=== PATIENT | female | born 1935 | race Caucasian/White ===

== ENCOUNTER 2022-07-22 14:24 | Inpatient (IN) ==
--- NOTE | 2022-07-22 14:35 | Emergency Department Note ---
Impression & Plan Symptomatic anemia, Iron deficiency anemia, Dizziness, Generalized weakness (Ruled Out): HLD (hyperlipidemia) ED Provider Note NAME: KAMERON TY AGE: 86 SEX: F ARRIVES VIA: Ambulance INFORMANT: Patient ED PROVIDER(S): Jason Luong MD CHIEF COMPLAINT: Weakness, anemia, referred. PLAN: Disposition: Admit MEDICAL DECISION MAKING: The patient is a pleasant 86-year-old woman who presents to the emergency department via EMS referred by [facility] for evaluation of generalized weakness and outpatient blood work that demonstrated hemoglobin of 7.5. Patient reports feeling weak for the past 3 months. She finds it difficu lt to pinpoint when she got weaker. It was noted by counts include [facility] beds at the [facility] that she was orthostatic. She is on a daily aspirin but no anticoagulation. She denies any bloody or black stools. She feels she is eating okay. She denies any fevers, cough, congestion, vomiting, diarrhea or urinary symptoms. On arrival, the patient is fatigued appearing no distress, afebrile stable vital signs. She has no focal neurologic deficits. She has moderate pallor. EKG without overt acute ischemia. CXR negative for acute cardiopulmonary process. WBC 8.4K, nonspecific. H/H 7.0/24 downtrending. Platelets within normal limits. Chemistry without metabolic acidosis. Electrolytes and LFTs without significant abnormality. Iron continues to be low at 21. LFTs unremarkable. High-sensitivity troponin 12.5, within normal limits. TSH within normal limits. UA without convincing evidence of infection. COVID-19 RNA, LEIGHANN test was negative. Given the patient's symptomatic anemia with downtrending H/H she was consented for blood transfusion and 2 units of PRBCs ordered. Patient agrees with plan for admission for further management. Case was discussed with Reina Ford, [facility] PAC, with Dr. Marrero [facility] hospitalist who will evaluate the patient for admission. Triage Nursing notes reviewed and agree them. Prior medical records reviewed Vital Signs: reviewed and remarkable for no significant abnormalities Differential diagnosis: Infection, dehydration, metabolic abnormality, hypo/hyperglycemia, electrolyte disturbance, anemia, hypoxia, cardiac sources, intracerebral event, toxicologic, neurologic, as well as other pathologies. ER treatment provided: See below. Diagnostics interpreted by me: ECG: Normal sinus rhythm, 82 bpm, no ectopy, no overt ST elevation or depression, QTC 436, QRS 98. Cardiac Monitoring: An order for continuous cardiac monitoring was placed and demonstrated Normal sinus rhythm, 82 bpm, no ectopy. Laboratory studies: See below Imaging studies: See below Consultation(s): Reina Ford, [facility] PAC, [facility]. HPI: The patient is a pleasant 86-year-old woman who presents to the emergency department via EMS referred by [facility] for evaluation of generalized weakness and outpatient blood work that demonstrated hemoglobin of 7.5. Patient reports feeling weak for the past 3 months. She finds it difficult to pinpoint when she got weaker. It was noted by counts include [facility] beds at the [facility] that she was orthostatic. She is on a daily aspirin but no anticoagulation. She denies any bloody or black stools. She feels she is eating okay. She denies any fevers, cough, congestion, vomiting, diarrhea or urinary symptoms. ROS: See above HPI for pertinent positives & negatives. A total of 10 systems reviewed and were otherwise negative. VITALS:See Below PHYSICAL EXAMINATION: GENERAL: Awake, alert, fatigued-appearing, in no distress HENT: Normocephalic, atraumatic. Oropharynx with dry mucous membranes and otherwise unremarkable. EYES: Normal conjunctiva. Sclera non-icteric. NECK: Supple. No nuchal rigidity. FROM. No JVD. RESPIRATORY: Clear to auscultation. CARDIAC: Regular rate, normal rhythm. Extremities warm and well perfused. Pulses equal. ABDOMEN: Soft, non-distended. No tenderness to palpation. No rebound or guarding. No masses. RECTAL: Deferred. MUSCULOSKELETAL: Chest examination reveals no tenderness. The back is symmetrical on inspection without obvious abnormality. There is no CVA tenderness to palpation. No joint edema. LOWER EXTREMITIES: Calves are equal size bilaterally and non-tender. No edema. No discoloration. NEURO: Normal sensorium. No sensory or motor deficits noted. 5/5 strength and SILT x 4 extremities. Intact finger to nose. SKIN: Moderate pallor. No rash or jaundice noted. ED COURSE: Critical Care: I have personally spent greater than 45 minutes of critical care time in the direct management of this patient. This includes bedside care, interpretation of diagnostic studies, and testing, discussion with consultants, patient, and family members, and other required patient management activities. This 45 minutes is in excess of all separately billable procedures. Jason Luong MD Past Med/Surg History Medical History Abdominal pain CKD stage 3 due to type 2 diabetes mellitus Diabetes type 2, controlled Goals of care, counseling/discussion H/O: lung cancer HLD (hyperlipidemia) HTN (hypertension) Iron deficiency anemia Paroxysmal atrial fibrillation Weakness Family History Other Family history non-contributory Social History Smoking Status: Never smoker Tobacco Type: Cigarettes Second Hand Exposure: No; Hx Alcohol Use: No Hx Substance Use: No Preferred Language: Israeli Communication Ability: Effective Call Centre Supervisor Required: No Beliefs That Will Affect Care: None Current Living Situation: Alone Other Information That Helps Us Care for You: No Feels Safe at Home: Yes Safety Concerns: Feels Safe At This Time Assistive Devices: Cane, Denture - Upper and Glasses Allergies Allergies Allergy/AdvReac Type Severity Reaction Status Date / Time No Known Drug Allergies Allergy Unknown Verified 07/22/22 17:05 Home Meds Home Medications Medication Instructions Recorded Confirmed aspirin 81 mg tablet,delayed 81 mg PO DAILY 07/22/22 07/22/22 release atorvastatin 20 mg tablet 20 mg PO DAILY 07/22/22 07/22/22 diclofenac sodium 1 % topical gel 1 ea topical QID PRN Pain 07/22/22 07/22/22 furosemide 40 mg tablet 40 mg PO QAM 07/22/22 07/22/22 hydrochlorothiazide 25 mg tablet 12.5 mg PO DAILY 07/22/22 07/22/22 insulin glargine 100 unit/mL 30 unit subcut QAM 07/22/22 07/22/22 subcutaneous solution (Lantus U-100 Insulin) lisinopril 2.5 mg tablet 2.5 mg PO DAILY 07/22/22 07/22/22 sertraline 50 mg tablet 50 mg PO QAM 07/22/22 07/22/22 tramadol 50 mg tablet 50 mg PO BID PRN Pain, Severe 07/22/22 07/22/22 triamcinolone acetonide 0.1 % 1 applic topical BID 07/22/22 07/22/22 topical cream Results & Data (ED) Vital Signs Vital Signs - 24 hr 07/22/22 14:24 07/22/22 14:24 07/22/22 14:24 Temperature 36.8 C 36.8 C Temperature Source Oral Oral Pulse Rate 87 Pulse Rate [Apical] 87 Pulse Rhythm Pulse Rhythm [Apical] Regular Pulse Strength [Apical] Normal Respiratory Rate 20 20 Respiratory Effort / Characteristics Non-Labored Spontaneous Non-Labored Spontaneous SOB on Exertion Respiratory Depth Normal Normal Respiratory Pattern Regular Regular Blood Pressure 145/68 H Blood Pressure [Right Arm] 145/68 H Blood Pressure Mean 93 Blood Pressure Mean [Right Arm] 93 Blood Pressure Position Sitting Blood Pressure Position [Right Arm] Lying Pulse Oximetry 98 98 98 Oxygen Delivery Method Room Air Room Air Room Air Sepsis Recent Fever Within 48 Hours No Sepsis New/Unexplained Change in Mental Status N/A Sepsis Action Taken by Nursing No Action Required 07/22/22 14:38 07/22/22 14:43 07/22/22 16:20 Temperature Temperature Source Pulse Rate 87 88 Pulse Rate [Apical] 76 Pulse Rhythm Regular Pulse Rhythm [Apical] Regular Pulse Strength [Apical] Normal Respiratory Rate 20 18 18 Respiratory Effort / Characteristics Non-Labored Respiratory Depth Normal Respiratory Pattern Regular Blood Pressure Blood Pressure [Right Arm] 120/60 Blood Pressure Mean Blood Pressure Mean [Right Arm] 80 Blood Pressure Position Blood Pressure Position [Right Arm] Lying Pulse Oximetry 98 96 97 Oxygen Delivery Method Room Air Room Air Room Air Sepsis Recent Fever Within 48 Hours Sepsis New/Unexplained Change in Mental Status Sepsis Action Taken by Nursing Laboratory Data Attestation: I reviewed the patient's lab results. Result diagrams: 07/22/22 14:38 07/22/22 14:38 Lab Results 07/22/22 07/22/22 07/22/22 Range/Units 14:38 14:38 14:38 WBC 8.48 (4.8-10.8) K/ul RBC 3.11 L (3.93-5.22) M/uL Hgb 7.0 L (12.0-16.0) g/dl Hct 24.0 L (34.1-44.9) % MCV 77.2 L (80.0-100.0) fL MCH 22.5 L (25.0-34.0) pg MCHC 29.2 L (32.0-36.0) g/dL RDW Std Deviation 45.5 (36.4-46.3) fL RDW Coeff of Ethan 16.2 H (11.5-14.5) % Plt Count 363 (130-400) K/uL MPV 10.0 (9.4-12.3) fL Immature Gran % (Auto) 0.4 % Neut % (Auto) 71.7 % Lymph % (Auto) 20.6 % [place] % (Auto) 5.5 % Eos % (Auto) 1.3 % Baso % (Auto) 0.5 % Reticulocyte % (Auto) (0.5-2.0) % Neut # (Auto) 6.08 (1.4-6.5) K/uL Lymph # (Auto) 1.75 (1.2-3.4) K/uL [place] # (Auto) 0.47 (0.24-0.82) K/uL Eos # (Auto) 0.11 (0-0.50) K/uL Baso # (Auto) 0.04 (0-0.2) K/uL Reticulocyte # (0.02-0.10) 10^6/uL Immature Gran # (Auto) 0.03 H (0.00-0.02) K/uL Polychromasia 1+ Microcytosis Present Ovalocytes 1+ Acanthocytes (Spur) 1+ Sodium 137 (136-145) mmol/L Potassium 4.2 (3.5-5.1) mmol/L Chloride 102 (98-107) mmol/L Carbon Dioxide 23 (21-32) mmol/L Anion Gap 12 H (3-11) BUN 26 H (6-23) mg/dl Creatinine 1.04 (0.6-1.2) mg/dl Est Cr Clr Drug Dosing 38.9 ml/min Est GFR ( Amer) 56.3 ml/min Est GFR (Non-Af Amer) 48.6 ml/min BUN/Creatinine Ratio 25.0 H (10-20) Glucose 188 H (70-99(Fasting)) mg/dl Calcium 9.1 (8.5-10.1) mg/dl Phosphorus 3.6 (2.5-4.9) mg/dl Magnesium 1.9 (1.7-2.4) mg/dl Iron 21 L (35-150) mcg/dl Transferrin 323 (200-360) mg/dl Ferritin 4.4 L (8-388) ng/ml Total Bilirubin 0.3 (0.2-1.0) mg/dl AST 15 (13-39) U/L ALT 12 (7-52) U/L Alkaline Phosphatase 50 (34-104) U/L Troponin I High Sens 12.5 (0-14) pg/ml Total Protein 6.3 (6.0-8.3) gm/dl Albumin 3.5 (3.4-5.0) gm/dl Globulin 2.8 (2.5-4.0) gm/dl Albumin/Globulin Ratio 1.3 (0.9-2) TSH 2.093 (0.300-4.500) uIu/ml SARS-CoV-2, RNA, NAAT (NEGATIVE) Blood Type Blood Type Recheck Antibody Screen Crossmatch 07/22/22 07/22/22 07/22/22 Range/Units 14:38 15:13 15:20 WBC (4.8-10.8) K/ul RBC (3.93-5.22) M/uL Hgb (12.0-16.0) g/dl Hct (34.1-44.9) % MCV (80.0-100.0) fL MCH (25.0-34.0) pg MCHC (32.0-36.0) g/dL RDW Std Deviation (36.4-46.3) fL RDW Coeff of Ethan (11.5-14.5) % Plt Count (130-400) K/uL MPV (9.4-12.3) fL Immature Gran % (Auto) % Neut % (Auto) % Lymph % (Auto) % [place] % (Auto) % Eos % (Auto) % Baso % (Auto) % Reticulocyte % (Auto) 1.5 (0.5-2.0) % Neut # (Auto) (1.4-6.5) K/uL Lymph # (Auto) (1.2-3.4) K/uL [place] # (Auto) (0.24-0.82) K/uL Eos # (Auto) (0-0.50) K/uL Baso # (Auto) (0-0.2) K/uL Reticulocyte # 0.05 (0.02-0.10) 10^6/uL Immature Gran # (Auto) (0.00-0.02) K/uL Polychromasia Microcytosis Ovalocytes Acanthocytes (Spur) Sodium (136-145) mmol/L Potassium (3.5-5.1) mmol/L Chloride (98-107) mmol/L Carbon Dioxide (21-32) mmol/L Anion Gap (3-11) BUN (6-23) mg/dl Creatinine (0.6-1.2) mg/dl Est Cr Clr Drug Dosing ml/min Est GFR ( Amer) ml/min Est GFR (Non-Af Amer) ml/min BUN/Creatinine Ratio (10-20) Glucose (70-99(Fasting)) mg/dl Calcium (8.5-10.1) mg/dl Phosphorus (2.5-4.9) mg/dl Magnesium (1.7-2.4) mg/dl Iron (35-150) mcg/dl Transferrin (200-360) mg/dl Ferritin (8-388) ng/ml Total Bilirubin (0.2-1.0) mg/dl AST (13-39) U/L ALT (7-52) U/L Alkaline Phosphatase (34-104) U/L Troponin I High Sens (0-14) pg/ml Total Protein (6.0-8.3) gm/dl Albumin (3.4-5.0) gm/dl Globulin (2.5-4.0) gm/dl Albumin/Globulin Ratio (0.9-2) TSH (0.300-4.500) uIu/ml SARS-CoV-2, RNA, NAAT NEGATIVE (NEGATIVE) Blood Type B Positive Blood Type Recheck Antibody Screen NEGATIVE Crossmatch See Detail 07/22/22 Range/Units 16:28 WBC (4.8-10.8) K/ul RBC (3.93-5.22) M/uL Hgb (12.0-16.0) g/dl Hct (34.1-44.9) % MCV (80.0-100.0) fL MCH (25.0-34.0) pg MCHC (32.0-36.0) g/dL RDW Std Deviation (36.4-46.3) fL RDW Coeff of Ethan (11.5-14.5) % Plt Count (130-400) K/uL MPV (9.4-12.3) fL Immature Gran % (Auto) % Neut % (Auto) % Lymph % (Auto) % [place] % (Auto) % Eos % (Auto) % Baso % (Auto) % Reticulocyte % (Auto) (0.5-2.0) % Neut # (Auto) (1.4-6.5) K/uL Lymph # (Auto) (1.2-3.4) K/uL [place] # (Auto) (0.24-0.82) K/uL Eos # (Auto) (0-0.50) K/uL Baso # (Auto) (0-0.2) K/uL Reticulocyte # (0.02-0.10) 10^6/uL Immature Gran # (Auto) (0.00-0.02) K/uL Polychromasia Microcytosis Ovalocytes Acanthocytes (Spur) Sodium (136-145) mmol/L Potassium (3.5-5.1) mmol/L Chloride (98-107) mmol/L Carbon Dioxide (21-32) mmol/L Anion Gap (3-11) BUN (6-23) mg/dl Creatinine (0.6-1.2) mg/dl Est Cr Clr Drug Dosing ml/min Est GFR ( Amer) ml/min Est GFR (Non-Af Amer) ml/min BUN/Creatinine Ratio (10-20) Glucose (70-99(Fasting)) mg/dl Calcium (8.5-10.1) mg/dl Phosphorus (2.5-4.9) mg/dl Magnesium (1.7-2.4) mg/dl Iron (35-150) mcg/dl Transferrin (200-360) mg/dl Ferritin (8-388) ng/ml Total Bilirubin (0.2-1.0) mg/dl AST (13-39) U/L ALT (7-52) U/L Alkaline Phosphatase (34-104) U/L Troponin I High Sens (0-14) pg/ml Total Protein (6.0-8.3) gm/dl Albumin (3.4-5.0) gm/dl Globulin (2.5-4.0) gm/dl Albumin/Globulin Ratio (0.9-2) TSH (0.300-4.500) uIu/ml SARS-CoV-2, RNA, NAAT (NEGATIVE) Blood Type Blood Type Recheck B Positive Antibody Screen Crossmatch Administered Medications Pantoprazole Sodium 40 mg/ (Syringe) 10 mls @ 5 mls/min IV BID KAY Stop: 08/21/22 20:59 Last Admin: 07/22/22 21:57 Dose: 5 mls/min Documented By: ARR Insulin Aspart (Insulin Aspart Per Unit) 0 units SC ACHS KAY Stop: 08/21/22 20:59 Last Admin: 07/22/22 21:57 Dose: 1 units Documented By: ARR Co-signed By: SONIYA Insulin Glargine (Lantus Per Unit Charge) 0 units SQ BID KAY; Protocol Stop: 08/21/22 20:59 Last Admin: 07/22/22 21:57 Dose: 15 units Documented By: ARR Co-signed By: SONIYA Triamcinolone Acetonide (Triamcinolone Acet 0.1% Cr 15 Gm Tube) 1 appln TOP BID KAY Stop: 08/21/22 20:59 Last Admin: 07/22/22 21:59 Dose: 1 appln Documented By: ARR Discontinued Medications Furosemide (Furosemide Inj 20 Mg/2 Ml Vial) 20 mg IV ONE ONE Stop: 07/22/22 17:46 Last Admin: 07/22/22 17:47 Dose: 20 mg Documented By: Sodium Chloride (Nss) 500 mls @ 250 mls/hr IV .Q2H KAY Stop: 07/22/22 16:44 Last Infusion: 07/22/22 17:15 Dose: 0 mls/hr Documented By: Admin: 07/22/22 15:15 Dose: 250 mls/hr Documented By: SR Magnesium Sulfate/Dextrose (Magnesium Sulfate / D5w) 1 gm in 100 mls @ 50 mls/hr IV ONE ONE Stop: 07/22/22 19:44 Last Infusion: 07/22/22 20:08 Dose: 0 mls/hr Documented By: Admin: 07/22/22 17:48 Dose: 50 mls/hr Documented By: Ioversol (Optiray 300 100ml) 94 ml IV ONCE ONE Stop: 07/22/22 17:30 Last Admin: 07/22/22 17:31 Dose: 94 ml Documented By: GRACIE Miscellaneous Information (Patient's Allergy Info Needs Entered) 1 each N/A Q30M [facility] Stop: 08/21/22 16:59 Last Admin: 07/22/22 20:09 Dose: Not Given Documented By: Admin: 07/22/22 17:06 Dose: 1 each Documented By: SR Pneumococcal Polyvalent Vaccine (Pneumococcal Polysaccharides 25 Mcg/0.5 Ml Vial/Syr) 25 mcg IM .ONCE ONE Stop: 07/22/22 19:45 Last Admin: 07/22/22 22:00 Dose: 25 mcg Documented By: ARR Imaging Data Radiologist's Impression: Chest X-Ray 07/22/22 14:41 XR chest 1V portable CLINICAL HISTORY: weakness TECHNIQUE: Single frontal radiograph of the chest was obtained. Comparison: None available at the time of this dictation. FINDINGS: No lines and tubes are seen. Calcified aortic knob is seen. The lungs are clear apart from atelectasis in the left lower lung. No evidence of pleural effusion or pneumothorax. IMPRESSION: No acute chest disease. ACT 112: Negative or not required by law. Electronically signed by: Jermaine Caicedo M.D. 07/22/2022 3:30 PM Discharge Plan Visit Data Chief Complaint: Weakness ED Provider: Jason Luong Discharge Problem: Symptomatic anemia, Iron deficiency anemia, Dizziness, Generalized weakness Discharge Problem: (Ruled Out): HLD (hyperlipidemia) Patient Disposition: Admitted As Inpatient Discharge Instructions Interventions: ED Discharge Assessment Last Done: 07/22/22 18:30
[2022-07-22] MEDS ORDERED: SODIUM CHLORIDE 0.9% 500 ML IV SCH (14:45)
[2022-07-22 15:04] LABS: Basophils # (auto) 0.04 K/uL (0-0.2); Basophils % (auto) 0.5 %; Eosinophils # (auto) 0.11 K/uL (0-0.50); Eosinophils % (auto) 1.3 %; Immature Granulocytes # (auto) 0.03 K/uL (0.00-0.02); Immature Granulocytes % (auto) 0.4 %; Lymphocytes # (auto) 1.75 K/uL (1.2-3.4); Lymphocytes % (auto) 20.6 %; Mean Corpuscular Hemoglobin 22.5 pg (25.0-34.0); Mean Corpuscular Hgb Conc 29.2 g/dL (32.0-36.0); Mean Corpuscular Volume 77.2 fL (80.0-100.0); Monocytes # (auto) 0.47 K/uL (0.24-0.82); Monocytes % (auto) 5.5 %; Neutrophils # (auto) 6.08 K/uL (1.4-6.5); Neutrophils % (auto) 71.7 %; Platelet Count 363 K/uL (130-400); RDW Coefficient of Variation 16.2 % (11.5-14.5); RDW Standard Deviation 45.5 fL (36.4-46.3); Red Blood Count 3.11 M/uL (3.93-5.22); White Blood Count 8.48 K/ul (4.8-10.8)
[2022-07-22 15:20] LABS: Reticulocyte % 1.5 % (0.5-2.0); Reticulocytes # 0.05 10^6/uL (0.02-0.10)
[2022-07-22 15:22] LABS: Acanthocytes 1+; Microcytosis Present; Ovalocytes 1+; Polychromasia 1+
--- NOTE | 2022-07-22 15:31 | XRay Report ---
XR chest 1V portable CLINICAL HISTORY: weakness TECHNIQUE: Single frontal radiograph of the chest was obtained. Comparison: None available at the time of this dictation. FINDINGS: No lines and tubes are seen. Calcified aortic knob is seen. The lungs are clear apart from atelectasi s in the left lower lung. No evidence of pleural effusion or pneumothorax. IMPRESSION: No acute chest disease. ACT 112: Negative or not required by law. Electronically signed by: Jermaine Caicedo M.D. 07/22/2022 3:30 PM
[2022-07-22 15:32] LABS: Albumin Globulin Ratio 1.3 (0.9-2); Albumin Level 3.5 gm/dl (3.4-5.0); Bilirubin,Total 0.3 mg/dl (0.2-1.0); Calcium 9.1 mg/dl (8.5-10.1); Creatinine Clr Calc Pharmacy 38.9 ml/min; Est GFR (African American) 56.3 ml/min; Est GFR (Non-African American) 48.6 ml/min; Globulin 2.8 gm/dl (2.5-4.0); Magnesium 1.9 mg/dl (1.7-2.4); Phosphorus 3.6 mg/dl (2.5-4.9); Potassium 4.2 mmol/L (3.5-5.1); Total Protein 6.3 gm/dl (6.0-8.3); Troponin I High Sensitivity 12.5 pg/ml (0-14)
[2022-07-22 15:46] LABS: Ferritin 4.4 ng/ml (8-388)
[2022-07-22] MEDS ORDERED: SODIUM CHLORIDE 0.9% 250 ML IV PRN (16:11)
--- NOTE | 2022-07-22 16:23 | History & Physical Report ---
Date of Service July 22, 2022 Assessment & Plan (1) Abdominal pain: (2) Weakness: (3) Iron deficiency anemia: (4) Paroxysmal atrial fibrillation: (5) Diabetes type 2, controlled: (6) CKD stage 3 due to type 2 diabetes mellitus: (7) H/O: lung cancer: (8) HTN (hypertension): (9) HLD (hyperlipidemia): Plan 86 y/o presents with weakness x 3 weeks and low Hgb; 7.0. Patient was to start Fe+ treatments today. Patient with some dizziness with ambulation. LLQ tenderness on exam; abd/pelvic CT ordered; pt will receive 1 UPRBC. Hold ASA; start Protonix. Patient with PMH that includes breast ca in 2010 s/p lumpectomy but no chemo/radiation and ovarian ca s/p complete hysterectomy 1989. Pt also DM2, CKD3, pAF. Fe+ Deficiency Anemia Abdominal Pain Weakness: Was due to start taking PO Iron, was just picked up at Pharmacy Increasing weakness with ambulating Hgb 7.0 in ED; T/C completed; Blood consent obtained; 1UPRBC infusing Lasix 20 mg s/p 1UPRBC FOBC ordered GI Consult placed; colonoscopy recc as OPT if stable. Pt stated she is not interested in a colonscopy and has never had one. LLQ on palpation; abd/pelvic CT ordered Ascorbic acid/Ferrous Sulfate ordered DM2: AC/HS blood sugars; no meal time coverage Lantus 34 units Q AM; Glycemic Pharmacy consulted for AM to manage after tonight Not taking any oral agents For BSG < 110, give 0 units Lantus For BSG 110-180 give 10 units Lantus For BSG > 180 give 15 units Lantus NPO after MN until GI sees patient; will provide diet tonight. H/O Lung and ovarian cancer: breast ca in 2010 s/p lumpectomy but no chemo/radiation ovarian ca s/p complete hysterectomy 1989 Moderate Aortic Stenosis HTN pAF: Takes a baby ASA; hold for now until H/H stable Noted on ECHO 03/2022: EF 60-64% Takes Lisinopril and HCTZ; hold HCTZ takes baby ASA; hold until bleeding/hgb stable HLD: takes atorvastatin; continue check lipid panel in AM Degenerative Disc Disease: takes Tramadol; continue Reports having compression fractures; no back surgeries noted Disposition: PCP: Dr. Fuentes Code: Full code Contact: [place] [phone]; called and left VM to provide update VTE Prophylaxis: TEDS/SCDS I personally was able to review all current laboratory work and diagnostic images obtained in the ED. Additionally, I was able to review the patients past medication reconciliation and history with direct visualization in the patients chart. Patient seen in collaboration with Dr. Marrero. See his addendum and physical exam added to this note. History of Present Illness Chief Complaint: weakness and abnormal labs Primary Care Provider: Mariluz Rajput MD Patient stated that she was being seen by [facility] and was noted to have a low hemoglobin of 7.5. She stated that she has been feeling week over the past few weeks, and was feeling dizzy when she would walk a few steps. She currently denies BUCKNER, dizziness, CP, SOB, black and tarry stools. 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 Patient reports that she lives alone at home and her granddaughter has arranged meals on wheels. Patient was sitting upright in her hospital bed in no apparent distress. She was AAO x 3 and able to converse and hold a meaningful conversation. She had some LLQ tenderness on exam warranting an abdominal CT to be ordered. She will receive one unit of PRBC with Lasix thereafter and we will trend H/H. Patient will be admitted under Hospitalist service for further evaluation and management. Please see A/P for further details. Allergies Allergy/AdvReac Type Severity Reaction Status Date / Time No Known Drug Allergies Allergy Unknown Verified 07/22/22 17:05 Home Medications Medication Instructions Recorded Confirmed Type aspirin 81 mg tablet,delayed 81 mg PO DAILY 07/22/22 07/22/22 History release atorvastatin 20 mg tablet 20 mg PO DAILY 07/22/22 07/22/22 History diclofenac sodium 1 % topical gel 1 ea topical QID PRN Pain 07/22/22 07/22/22 History furosemide 40 mg tablet 40 mg PO QAM 07/22/22 07/22/22 History hydrochlorothiazide 25 mg tablet 12.5 mg PO DAILY 07/22/22 07/22/22 History insulin glargine 100 unit/mL 30 unit subcut QAM 07/22/22 07/22/22 History subcutaneous solution (Lantus U-100 Insulin) lisinopril 2.5 mg tablet 2.5 mg PO DAILY 07/22/22 07/22/22 History sertraline 25 mg tablet 25 mg PO QAM 07/22/22 07/22/22 History sertraline 50 mg tablet 50 mg PO QAM 07/22/22 07/22/22 History tramadol 50 mg tablet 50 mg PO BID PRN Pain, Severe 07/22/22 07/22/22 History triamcinolone acetonide 0.1 % 1 applic topical BID 07/22/22 07/22/22 History topical cream Past Med/Surg History Medical History (Updated 07/22/22 @ 17:18 by ELOISE Coyle) Abdominal pain CKD stage 3 due to type 2 diabetes mellitus Diabetes type 2, controlled Goals of care, counseling/discussion H/O: lung cancer HLD (hyperlipidemia) HTN (hypertension) Iron deficiency anemia Paroxysmal atrial fibrillation Weakness Social History Smoking Status: Former smoker Tobacco Type: Cigarettes Preferred Language: Sinhala Feels Safe at Home: Yes Review of Systems Review of Systems: Neuro: (-) Falls, trauma, slurred speech HEENT: (-) BUCKNER, dizziness, dysphagia, visual or auditory changes CV: (-) CP, palpitations, swelling Resp: (-) SOB GI: (-) appetite changes, N/V/D, bowel changes : (-) urinary changes Skin: (-) rashes Psych: (-) anxiety, depression Physical Exam Physical Exam: Neuro: AAOx4, PERRLA, no aphagia, memory changes, CNII-XII grossly intact HEENT: head normocephalic, moist mucus membranes CV: S1/S2, (-) M/G/R, (+) 2 ower extremity edema, cap refill < 3 seconds Resp: Lungs CTA in all [place]. On RA GI: Abdomen S/NT/ND, Ax4 bowel sounds, (-) CVA tenderness Musculoskeletal: 5/5 B/L UE strength, 5/5 B/L LE strength. No gait disturbance Skin: (-) rashes , (-) erythema. Psych: euthymic mood Results & Data Results & Data ([facility] [place]) Vital Signs (Past 12 Hours) Vital Signs Temp Pulse Pulse Resp BP BP Pulse Ox 07/22/22 14:43 88 18 96 07/22/22 14:38 87 20 98 07/22/22 14:24 36.8 C 87 20 145/68 H 98 07/22/22 14:24 98 07/22/22 14:24 36.8 C 87 20 145/68 H 98 O2 Del Method 07/22/22 14:43 Room Air 07/22/22 14:38 Room Air 07/22/22 14:24 Room Air 07/22/22 14:24 Room Air 07/22/22 14:24 Room Air Laboratory Results Short CBC 07/22/22 Range/Units 14:38 WBC 8.48 (4.8-10.8) K/ul Hgb 7.0 L (12.0-16.0) g/dl Hct 24.0 L (34.1-44.9) % Plt Count 363 (130-400) K/uL BMP 07/22/22 14:38 Sodium 137 Potassium 4.2 Chloride 102 Carbon Dioxide 23 BUN 26 H Creatinine 1.04 Glucose 188 H Calcium 9.1 Liver Function 07/22/22 Range/Units 14:38 Total Bilirubin 0.3 (0.2-1.0) mg/dl AST 15 (13-39) U/L ALT 12 (7-52) U/L Alkaline Phosphatase 50 (34-104) U/L Albumin 3.5 (3.4-5.0) gm/dl Diagnostic Findings Chest X-Ray 07/22/22 14:41 XR chest 1V portable CLINICAL HISTORY: weakness TECHNIQUE: Single frontal radiograph of the chest was obtained. Comparison: None available at the time of this dictation. FINDINGS: No lines and tubes are seen. Calcified aortic knob is seen. The lungs are clear apart from atelectasis in the left lower lung. No evidence of pleural effusion or pneumothorax. IMPRESSION: No acute chest disease. ACT 112: Negative or not required by law. Electronically signed by: Jermaine Caicedo M.D. 07/22/2022 3:30 PM Code Status & VTE Plan Code Status Full Code in the event of Cardiac or respiratory arrest VTE Prophylaxis Plan VTE Prophylaxis will be ordered: Yes Supervising Physician Co-Signing Physician Notes Pt is a 86 y/o F with hx of Afib on aspirin, IDDM, moderate aortic valve stenosis, HTN, HLD, WILFREDO, CKD III, R lung ca s/p lobectomy admitted for symptomatic iron def anemia Hgb: 7.5 on 07/15/22 and 9.8 on 01/2022 PE: NAD, well developed HEENT: normal conjunctiva, EOMI Heart: Normal S1/S2, + systolic murmur Lungs: CTA, no crackles or wheezing Abd: soft, ND but mild TTP of the LLQ with possible palpable mass MSK: severe b/l pitting edema with small blisters Psych: AAOx3, normal affect A/P: Symptomatic iron def anemia: -pt denied any hx of GI bleed or hx of hemorrhoids -never had colonoscopy and not interested in colonoscopy -hgb has been decreasing slowly over a year -not suspecting UGIB but will do protonix IV q12hr -will obtain FOBT -hold aspirin at this time -CT abd to evaluate the abd -pt is okay with blood transfusion and sched to get 2 units of PRBC - repeat CBC at might night -for now will do oral Iron BID with vit c --- depending the hgb response will decide venofer -PT/OT Moderate with severe b/l pitting edema -will change the Lasix to 20mg IV -due to acute anemia with low normal BP will hold HCTZ for now -continue Lisinopril IDDM: -continue home lantus units and ISS Other chronic conditions: plan as above Agree with A/P by ELOISE Crooks
[2022-07-22] MEDS: Patient's ALLERGY Info needs ENTERED SCH ×2 (17:06→20:09)
[2022-07-22] MEDS ORDERED: OPTIRAY 300 100mL IV ONE (17:29)
[2022-07-22] MEDS ORDERED: MAGNESIUM SULFATE / D5W 1 GM/100 ML BAG IV ONE (17:45)
[2022-07-22] MEDS ORDERED: FUROSEMIDE INJ 20 MG/2 ML VIAL IV ONE (17:45)
--- NOTE | 2022-07-22 17:45 | CT Scan Report ---
CT SCAN OF THE ABDOMEN AND PELVIS WITH IV CONTRAST CLINICAL HISTORY: Left lower quadrant abdominal pain. COMPARISON STUDY: No priors. TECHNIQUE: Following the IV administration of 94 cc of Optiray 300, CT scan of the abdomen and pelvi s is performed from the lung bases to the proximal femora. Images are reviewed in the axial, sagittal , and coronal planes. IV contrast was administered without complication. A dose lowering technique wa s utilized adhering to the principles of ALARA. CT DOSE: 588.54 mGy.cm FINDINGS: Lung bases: The heart is enlarged and without pericardial effusion. The coronary arteries and mitral annulus are densely calcified. There is mild elevation of the left hemidiaphragm with bibasilar scarr ing/atelectasis. No airspace consolidation or pleural effusion is seen. A 3 mm left lower lobe pulmon daniela nodule is seen on image #36. A fat-containing Bochdalek hernia is noted on the right. Liver: The contrast-enhanced liver is normal in size, contour, and attenuation. There is no intrahepa tic biliary ductal dilatation. The hepatic veins and portal veins are patent. Gallbladder: There are tiny calcified gallstones without CT evidence of acute cholecystitis. Spleen: Normal in size and attenuation. Pancreas: Atrophic and grossly unremarkable. Adrenal glands: Unremarkable. Kidneys: The contrast enhanced kidneys demonstrate cortical atrophy and are without hydronephrosis. T he kidneys enhance symmetrically. Tiny renal sinus cysts are seen on the left. Abdominal vasculature: The abdominal aorta is normal in course and caliber noting moderate to advance d atherosclerotic calcification. Stomach and bowel: There is a moderate hiatal hernia. Postoperative change is seen involving the stom ach. There is [id number] sigmoid diverticulosis without CT evidence of acute diverticulitis. No bowel obstruction is identified. Mild fecal retention is seen throughout the colon. The appendix is normal as visualized. Peritoneum: There is no intraperitoneal free air or abdominal ascites. Lymphadenopathy: None. Pelvic viscera: The bladder is normal as visualized. The uterus is surgically absent. No adnexal lesi on is seen. Skeletal structures: The skeletal structures are osteopenic. There is moderate to advanced lumbosacra l spondylosis as well as mild scoliosis. No lytic or blastic lesions are seen. There are healed left- sided rib fractures. IMPRESSION: 1. No acute infectious or inflammatory findings are identified in the abdomen or pelvis. 2. Moderate hiatal hernia. 3. Cholelithiasis. 4. Cardiomegaly. 5. Sigmoid diverticulosis without CT evidence of acute diverticulitis. 6. Additional findings as above. ACT 112: Negative or not required by law. Electronically signed by: Sae Fonseca M.D. 07/22/2022 5:43 PM
[2022-07-22] MEDS ORDERED: PNEUMOCOCCAL POLYSACCHARIDES 25 MCG/0.5 ML VIAL/SYR IM ONE (19:44)
[2022-07-22] MEDS ORDERED: ASCORBIC ACID 500 MG TAB PO SCH (19:54)
[2022-07-22] MEDS ORDERED: DEXTROSE 50% 50 ML SYRINGE IV PRN (19:54)
[2022-07-22] MEDS ORDERED: ACETAMINOPHEN 325 MG TAB PO PRN (19:54)
[2022-07-22] MEDS ORDERED: GLUCOSE 10 TAB/TUBE PO PRN (19:54)
[2022-07-22] MEDS ORDERED: GLUCAGON FOR INJ 1 MG VIAL SQ PRN (19:54)
[2022-07-22] MEDS ORDERED: CARBOHYDRATES FOR HYPOGLYCEMIA PO PRN (19:54)
[2022-07-22] MEDS ORDERED: POLYETHYLENE (MIRALAX) 17 GM PACK PO PRN (19:54)
[2022-07-22] MEDS ORDERED: ALUMINUM/MAGNESIUM SUSP 30 ML UDC PO PRN (19:54)
[2022-07-22] MEDS ORDERED: GLUCOSE 40% GEL 15 GM TUBE PO PRN (19:54)
[2022-07-22] MEDS ORDERED: ONDANSETRON INJ 2 MG/ML 2 ML VIAL IV PRN (19:54)
[2022-07-22] MEDS ORDERED: MAGNESIUM HYDROXIDE SUSP 30 ML UDC PO PRN (19:54)
[2022-07-22] MEDS ORDERED: LANTUS PER UNIT CHARGE SQ SCH (21:00)
[2022-07-22] MEDS: PANTOprazole 40 MG in SYRINGE 0 ML IV SCH (21:57)
[2022-07-22] MEDS: INSULIN ASPART PER UNIT SC SCH (21:57)
[2022-07-22] MEDS: TRIAMCINOLONE ACET 0.1% CR 15 GM TUBE TOP SCH (21:59)
[2022-07-23 02:22] LABS: Appearance Urine Clear (Clear); Bacteria Urine Automated 4+ (Negative); Bilirubin Urine Negative (Negative); Blood Urine Negative (Negative); Cast Urine Automated 0 /lpf (0-5); Color Urine Yellow; Glucose Urine UA Negative (Negative); Ketones Urine Negative (Negative); Leukocyte Esterase Urine 1+ (Negative); Nitrite Urine Negative (Negative); Protein Urine Negative (Negative); RBC Urine Automated 0-4 /hpf (0-4); Specific Gravity Urine 1.021 (1.000-1.030); Urobilinogen Urine Negative (Negative); pH Urine 6.5 (4.5-7.5)
[2022-07-23 06:12] LABS: Hematocrit (blood only) 27.4 % (34.1-44.9); Hemoglobin 8.7 g/dl (12.0-16.0); Mean Corpuscular Hemoglobin 24.4 pg (25.0-34.0); Mean Corpuscular Hgb Conc 31.8 g/dL (32.0-36.0); Mean Corpuscular Volume 76.8 fL (80.0-100.0); Mean Platelet Volume 9.3 fL (9.4-12.3); Platelet Count 298 K/uL (130-400); RDW Coefficient of Variation 16.2 % (11.5-14.5); RDW Standard Deviation 45.5 fL (36.4-46.3); Red Blood Count 3.57 M/uL (3.93-5.22); White Blood Count 6.26 K/ul (4.8-10.8)
[2022-07-23 06:42] LABS: BUN Creatinine Ratio 22.6 (10-20); Calcium 8.7 mg/dl (8.5-10.1); Chol HDL Ratio 2.2 (0-5); Creatinine Clr Calc Pharmacy 47.3 ml/min; Est GFR (African American) 72.9 ml/min; Est GFR (Non-African American) 62.9 ml/min; Potassium 3.5 mmol/L (3.5-5.1)
[2022-07-23 06:51] LABS: Ferritin 5.1 ng/ml (8-388)
[2022-07-23] MEDS ORDERED: PHARMACY GLYCEMIC MGMT CONSULT PRN (08:00)
[2022-07-23 08:01] LABS: Estimated Average Glucose 169 mg/dl; Hemoglobin A1C 7.5 % (4.5-5.6)
--- NOTE | 2022-07-23 08:56 | Gastrointestinal Consultation ---
Date of Consultation July 23, 2022 Assessment & Plan (1) Symptomatic anemia: Most likely her anemia is mutifactorial including CKD. She is iron deficient suggestive of some GI blood loss. (2) Iron deficiency anemia: Plan The pt has symptomatic iron deficiency anemia w/o gross GI bleeding. I explained to her that a common cause of blood loss is from the GI tract including problems such as bleeding/ulcerations in hiatal hernias (which she is at risk for as she has a moderate sized hiatal hernia), esophagus/stomach/small intestines irritations or ulcerations or colon cancer. I explained that we typically recommend an upper endoscopy to see if any source of blood loss from the esophagus/stomach/beginning of the small intestines and if normal then recommend colonoscopy. The pt tells me that she has never undergone either of these tests and would like to avoid them if at all possible. She does not take any acid reducers and she is maintained on a low dose ASA. Recommend starting once daily PPI such as Pantoprazole 40mg daily - ongoing - lo ng term - to contact the risks of bleeding from hiatal hernia and ASA use. Supervising Physician Co-Signing Physician Notes I have personally seen and examined the patient with ELOISE New. Her note reflects my exam and findings. I agree with her impression and plan. Pt needs daily PPI indefinitely. Rudy Escamilla M.D. History of Present Illness Reason for Consultation: Anemia Requesting Physician: Reina Ford Attending Physician: Yousif Galarza MD History of Present Illness Ms. Danitza Romo is an 86 yr old female pt of Dr. Rajput w a hx of P A-fib, DM2, CKD3, HTN, moderate aortic valve stenosis, lung cancer(2000 surgery, no chemo or radiation), ovarian cancer (hysterectomy/w radiation she believes), breast cancer (lumpectomy, no chemo or radiation), who had dizziness and presented to the ED. On arrival, Hb 7. She received 2 units of RBCs and Hb this morning is 8 .7.BUN has been normal. She is awake, alert oriented,she tells me that she has not had any black or red BMs, no nausea, abdominal pain or heartburn. She does have a hiatal hernia and if eats a large meal quickly, she will have regurgitation. She tends towards constipation and takes Miralax about once every 3 days which affects a BM every 3-4 days. She hasn't had a change in bowel habits lately. Occult stool is pending. She has not passed a BM since yesterday morning before arrival here. Allergies Allergy/AdvReac Type Severity Reaction Status Date / Time No Known Drug Allergies Allergy Unknown Verified 07/22/22 17:05 Home Medications Medication Instructions Recorded Confirmed Type aspirin 81 mg tablet,delayed 81 mg PO DAILY 07/22/22 07/22/22 History release atorvastatin 20 mg tablet 20 mg PO DAILY 07/22/22 07/22/22 History diclofenac sodium 1 % topical gel 1 ea topical QID PRN Pain 07/22/22 07/22/22 History furosemide 40 mg tablet 40 mg PO QAM 07/22/22 07/22/22 History hydrochlorothiazide 25 mg tablet 12.5 mg PO DAILY 07/22/22 07/22/22 History insulin glargine 100 unit/mL 30 unit subcut QAM 07/22/22 07/22/22 History subcutaneous solution (Lantus U-100 Insulin) lisinopril 2.5 mg tablet 2.5 mg PO DAILY 07/22/22 07/22/22 History sertraline 50 mg tablet 50 mg PO QAM 07/22/22 07/22/22 History tramadol 50 mg tablet 50 mg PO BID PRN Pain, Severe 07/22/22 07/22/22 History triamcinolone acetonide 0.1 % 1 applic topical BID 07/22/22 07/22/22 History topical cream Patient History Medical History Abdominal pain CKD stage 3 due to type 2 diabetes mellitus Diabetes type 2, controlled Goals of care, counseling/discussion H/O: lung cancer HLD (hyperlipidemia) HTN (hypertension) Iron deficiency anemia Paroxysmal atrial fibrillation Weakness Family History Other Family history non-contributory Social History Smoking Status: Never smoker Tobacco Type: Cigarettes Second Hand Exposure: No; Hx Alcohol Use: No Hx Substance Use: No Preferred Language: Djiboutian Communication Ability: Effective Investment Advisor Required: No Beliefs That Will Affect Care: None Current Living Situation: Alone Other Information That Helps Us Care for You: No Feels Safe at Home: Yes Safety Concerns: Feels Safe At This Time Assistive Devices: Cane, Denture - Upper and Glasses Review of Systems Review of Systems: ROS: Gen: Denies weakness, fevers, weight loss Eyes: No eye redness, or pain, no recent vision changes Resp: No SOB, no cough Cardio: + chronic bilat ankle edema, not recently worsened; No palpitations/irregular beats, no chest pain GI: No abdominal pain, no nausea/vomiting, no blood in BMs : Denies pain on urination Skin: + chronic bilat itchy ankle rashes x a year; No jaundice, no itching or new rashes M/S: chronic joint pain from arthritis but no recent worsening Physical Exam Constitutional: WD/WN, vitals as above Eyes: PERRL, conjunctivae normal, anicteric sclerae ENMT: external ear and nose normal, oropharynx normal Neck: trachea midline, no thyromegaly Respiratory: normal respiratory effort, lungs clear to auscultation Cardiovascular: Heart Sounds: normal S1, normal S2 and + murmur (3/6 systolic murmur consistent with moderate Aortic Valve Stenosis) Extremities: + edema (trace right ankle edema, 1+ left ankle edema) Gastrointestinal (Abdomen): normal bowel sounds, soft, nontender, no hepatosplenomegaly Skin: dull red splotchy rash on both ankles/lower legs, few small blisters Neurologic: PERRL, EOMI, accommodation nl, no face palsy, no dysarthria Psychiatric: A+Ox3, euthymic affect Lymphatic: no cervical or axillary lymphadenopathy Results & Data ([facility]) Vital Signs (Past 12 Hours) Vital Signs Temp Pulse Pulse Resp BP BP Pulse Ox 07/23/22 08:08 36.8 C 74 16 139/72 95 07/23/22 04:54 36.4 C L 20 96 07/22/22 23:30 81 07/23/22 00:51 36.8 C 76 18 132/68 98 07/22/22 23:51 36.5 C 75 18 130/78 97 07/22/22 23:21 36.7 C 76 16 127/75 96 07/22/22 23:06 36.9 C 75 18 126/76 97 07/22/22 22:40 36.7 C 77 18 122/60 100 O2 Del Method 07/23/22 08:08 Room Air 07/23/22 04:54 Room Air 07/22/22 23:30 07/23/22 00:51 07/22/22 23:51 07/22/22 23:21 07/22/22 23:06 07/22/22 22:40 Laboratory Results WBC 6.26, Hb 8.7, Hct 27.4, plts 298, Na 137, K 3.8, Cl 103, CO2 28, BUN 19, Cr 0.84, glucose 71. MCV 76, iron 21. Diagnostic Findings CTAP 07/22/22: 1. No acute infectious or inflammatory findings are identified in the abdomen or pelvis. 2. Moderate hiatal hernia. 3. Cholelithiasis. 4. Cardiomegaly. 5. Sigmoid diverticulosis without CT evidence of acute diverticulitis.
[2022-07-23] MEDS ORDERED: FUROSEMIDE INJ 20 MG/2 ML VIAL IV SCH (09:00)
[2022-07-23] MEDS ORDERED: SERTRALINE HCL 50 MG TABLET PO SCH (09:00)
[2022-07-23] MEDS ORDERED: IRON SUCROSE 200 MG in 0.9 % SODIUM CHLORIDE 100 ML IV ONE (09:00)
[2022-07-23] MEDS: INSULIN ASPART PER UNIT SC SCH ×4 (09:27→20:41)
[2022-07-23] MEDS: PANTOprazole 40 MG in SYRINGE 0 ML IV SCH ×2 (09:48→20:42)
[2022-07-23] MEDS: ASCORBIC ACID 500 MG TAB PO SCH (09:48)
[2022-07-23] MEDS: TRIAMCINOLONE ACET 0.1% CR 15 GM TUBE TOP SCH ×2 (09:48→20:42)
[2022-07-23] MEDS: cefTRIAXone SODIUM 1,000 MG in DEXTROSE 5% 50 ML IV SCH (10:24)
--- NOTE | 2022-07-23 10:58 | XRay Report ---
XR chest 1V portable HISTORY: 86 years-old Female volume overload acute shortness of breath with volume overload COMPARISON: Chest radiograph of same day TECHNIQUE: Portable AP view of the chest FINDINGS: Cardiomediastinal and hilar silhouettes are within normal limits. Mitral annular calcifications. Athe rosclerosis of the aorta. No pneumothorax, pleural effusion, airspace consolidation or overt pulmonar y edema. Surgical clips project over the right hilum. Small hiatal hernia. IMPRESSION: Cardiomegaly without acute process. ACT 112: Negative or not required by law. The above report was generated using voice recognition software. It may contain grammatical, syntax o r spelling errors. Electronically signed by: Claude Simon M.D. 07/23/2022 10:56 AM
[2022-07-23] MEDS: SERTRALINE HCL 50 MG TABLET PO SCH (11:31)
[2022-07-23] MEDS: FUROSEMIDE 40 MG TAB PO SCH (11:31)
--- NOTE | 2022-07-23 11:59 | Electrocardiogram Report ---
Test Reason : Blood Pressure : / mmHG Vent. Rate : 082 BPM Atrial Rate : 082 BPM P-R Int : 186 ms QRS Dur : 098 ms QT Int : 374 ms P-R-T Axes : 090 -04 022 degrees QTc Int : 436 ms Poor data quality, interpretation may be adversely affected Normal sinus rhythm Normal ECG No previous ECGs available Confirmed by José Luis Simmons ([id number]) on 07/23/2022 11:58:37 AM Referred By: REFERRED SELF Confirmed By:José Luis Simmons
[2022-07-23] MEDS: ATORVASTATIN 20 MG TAB PO SCH (12:40)
[2022-07-23] MEDS: FERROUS SULFATE 325 MG TAB PO SCH ×2 (12:40→18:16)
[2022-07-23] MEDS: lisinopril 2.5 MG TAB PO SCH (12:40)
--- NOTE | 2022-07-23 15:07 | Pharmacy Report ---
Pharmacy Glycemic Short Note 2 - Date of Service July 23, 2022 - Glycemic Short BSG Results (Last 24 hours): 07/22/22 07/22/22 07/23/22 14:38 19:11 05:43 Glucose 188 H 71 POC Glucose 188 H 07/23/22 07/23/22 08:44 12:29 Glucose POC Glucose 88 93 OUTPATIENT ANTIDIABETIC REGIMEN: * Lantus 30 units daily ASSESSMENT: * 86 year old female admitted with weakness, with GI workup. Type 2 diabetic managed only on Lantus daily. * Received total of 16 units of insulin yesterday, of which 15 units were basal (50% of home dose). Fasting BSGs 80s, will hold further Lantus this morning as patient is NPO * Diet resumed this afternoon, no carbs noted for lunch. Will have scale for basal at HS to give only if BSGs >180. Will reassess future basal in AM. PLAN FOR INPATIENT GLYCEMIC CONTROL: * Hold outpatient oral diabetes medications * Basal insulin * Lantus 0-10 units HS * Bolus insulin * NovoLog per scale ACHS or Q6hrs while NPO * Goal Range: Low 120 mg/dL - High 160 mg/dL * Correction Factor: 30 mg/dL/unit * Nutritional / Prandial insulin per carb ratio of 1 unit per 15 grams CHO consumed
--- NOTE | 2022-07-23 16:46 | Hospitalist Progress Note ---
Date of Service July 23, 2022 Assessment & Plan (1) Abdominal pain: (2) Weakness: (3) Iron deficiency anemia: (4) Paroxysmal atrial fibrillation: (5) Diabetes type 2, controlled: (6) CKD stage 3 due to type 2 diabetes mellitus: (7) H/O: lung cancer: (8) HTN (hypertension): (9) HLD (hyperlipidemia): Plan Patient is a 86 yr female who presents with weakness x 3 weeks and low Hgb; 7.0. Patient was to start Fe+ treatments today. Patient with some dizziness with ambulation. LLQ tenderness on exam; abd/pelvic CT ordered; pt will receive 1 UPRBC. Hold ASA; start Protonix. Patient with PMH that includes breast ca in 2010 s/p lumpectomy but no chemo/radiation and ovarian ca s/p complete hysterectomy 1989. Pt also DM2, CKD3, pAF. Symptomatic anemia Iron deficiency anemia in setting of CKD Suspected GI blood loss --CT ABD:No acute infectious or inflammatory findings are identified in the abdomen or pelvis. Moderate hiatal hernia. Cholelithiasis. Cardiomegaly. Sigmoid diverticulosis without CT evidence of acute diverticulitis. S/P 2 units PRBCs Also received IV Venofer -Peripheral Smear:suggestive of iron deficiency anemia. No morphologic features suggestive of hemolytic anemia or MDS/MPN Stool for Occult pending Continue PPI daily as recommended by GI Appreciate GI input Currently patient not interested in EGD/colonoscopy Monitor CBC Suspected UTI Urine culture pending Empirically on Rocephin DM II Continue insulin Monitor BGs H/O Lung and ovarian cancer: breast ca in 2010 s/p lumpectomy but no chemo/radiation ovarian ca s/p complete hysterectomy 1989 Moderate Aortic Stenosis HTN P.Afib Resume Aspirin as able Continue Lisinopril HLD: On Atorvastatin; continue Degenerative Disc Disease: Stable DVT Px: SCDs for now Code Status: Full code Admission and Anticipated Discharge Date Admission Date: July 22, 2022 Subjective Patient is seen and examined at bedside States feeling well today Denies any bleeding issues Also denies any chest pain, dyspnea, dizziness, nausea, abdominal pain Offers no complaints Review of Systems Review of Systems: All systems reviewed & are unremarkable except as noted in Subjective Physical Exam Physical Exam: Physical Exam: Vitals signs as noted above General Appearance:Obese, no apparent distress Head: normocephalic, Atraumatic Eyes: normal inspection, EOMI Neck: supple, Trachea midline Respiratory/Chest: Normal breath sounds, CTA, No accessory muscle use Cardiovascular: S1, S2, +murmur Abdomen/GI:Soft, Non tender, Bowel sounds present Extremities/Musculoskeletal:normal inspection, 1+ B/ LE edema Neurologic/Psych:AAOX3, grossly no focal neurological deficits Skin: normal color, warm Results & Data Results & Data ([facility]) Vital Signs (Past 12 Hours) Vital Signs Temp Pulse Pulse Resp BP Pulse Ox O2 Del Method 07/23/22 16:28 90 07/23/22 15:46 36.9 C 81 18 113/70 94 Room Air 07/23/22 12:28 37.2 C 76 18 114/71 96 Room Air 07/23/22 11:59 Room Air 07/23/22 11:54 70 07/23/22 08:08 36.8 C 74 16 139/72 95 Room Air 07/23/22 04:54 36.4 C L 20 96 Room Air Laboratory Results Short CBC 07/23/22 Range/Units 05:43 WBC 6.26 (4.8-10.8) K/ul Hgb 8.7 L (12.0-16.0) g/dl Hct 27.4 L (34.1-44.9) % Plt Count 298 (130-400) K/uL BMP 07/23/22 05:43 Sodium 137 Potassium 3.5 Chloride 103 Carbon Dioxide 28 BUN 19 Creatinine 0.84 Glucose 71 Calcium 8.7 Urine 07/23/22 Range/Units Unknown Urine Color Yellow Urine Appearance Clear (Clear) Urine pH 6.5 (4.5-7.5) Ur Specific [place] 1.021 (1.000-1.030) Urine Protein Negative (Negative) Urine Glucose (UA) Negative (Negative)
[2022-07-23] MEDS ORDERED: LANTUS PER UNIT CHARGE SQ SCH (21:00)
[2022-07-24] MEDS: traMADol HCL 50 MG TABLET PO PRN (07:27)
[2022-07-24 07:52] LABS: Hematocrit (blood only) 28.1 % (34.1-44.9); Hemoglobin 8.8 g/dl (12.0-16.0)
[2022-07-24 08:22] LABS: BUN Creatinine Ratio 18.5 (10-20); Calcium 8.7 mg/dl (8.5-10.1); Creatinine Clr Calc Pharmacy 43.1 ml/min; Est GFR (African American) 65.3 ml/min; Est GFR (Non-African American) 56.4 ml/min; Potassium 3.8 mmol/L (3.5-5.1)
[2022-07-24] MEDS: INSULIN ASPART PER UNIT SC SCH ×4 (08:44→20:51)
[2022-07-24] MEDS: lisinopril 2.5 MG TAB PO SCH (08:55)
[2022-07-24] MEDS: cefTRIAXone SODIUM 1,000 MG in DEXTROSE 5% 50 ML IV SCH (08:55)
[2022-07-24] MEDS: ASCORBIC ACID 500 MG TAB PO SCH (08:55)
[2022-07-24] MEDS: SERTRALINE HCL 50 MG TABLET PO SCH (08:55)
[2022-07-24] MEDS: FUROSEMIDE 40 MG TAB PO SCH (08:55)
[2022-07-24] MEDS: TRIAMCINOLONE ACET 0.1% CR 15 GM TUBE TOP SCH ×2 (08:56→20:48)
[2022-07-24] MEDS: ATORVASTATIN 20 MG TAB PO SCH (08:56)
[2022-07-24] MEDS: FERROUS SULFATE 325 MG TAB PO SCH ×2 (08:56→17:48)
[2022-07-24] MEDS: PANTOprazole 40 MG in SYRINGE 0 ML IV SCH ×2 (09:56→20:48)
[2022-07-24] MEDS ORDERED: IRON SUCROSE 200 MG in 0.9 % SODIUM CHLORIDE 100 ML IV ONE (10:30)
[2022-07-24] MEDS ORDERED: LANTUS PER UNIT CHARGE SQ ONE (12:30)
[2022-07-24] MEDS ORDERED: LANTUS PER UNIT CHARGE SQ SCH (12:45)
--- NOTE | 2022-07-24 14:30 | Pharmacy Report ---
Pharmacy Glycemic Short Note 2 - Date of Service July 24, 2022 - Glycemic Short BSG Results (Last 24 hours): 07/23/22 07/23/22 07/24/22 17:09 20:33 07:24 Glucose 106 H POC Glucose 159 H 119 H 07/24/22 07/24/22 07/24/22 07:31 12:16 12:18 Glucose POC Glucose 115 H 200 H 173 H OUTPATIENT ANTIDIABETIC REGIMEN: * Lantus 30 units daily ASSESSMENT: 07/24: * Patient received a total of 2 units of insulin yesterday, all of it was bolus, no basal. * Fasting BSG today was 106 mg/dl. * Patient seems to have better food intake today. Lunch BSG trended up to 200 mg/dl, re-check was 173 mg/dl. * Basal 10 units of Lantus added at noon today. Resumed basal dose on a scale tomorrow AM based on BSG. * Continued Novolog parameters the same. 07/23/22: * 86 year old female admitted with weakness, with GI workup. Type 2 diabetic managed only on Lantus daily. * Received total of 16 units of insulin yesterday, of which 15 units were basal (50% of home dose). Fasting BSGs 80s, will hold further Lantus this morning as patient is NPO * Diet resumed this afternoon, no carbs noted for lunch. Will have scale for basal at HS to give only if BSGs >180. Will reassess future basal in AM. PLAN FOR INPATIENT GLYCEMIC CONTROL: * Hold outpatient oral diabetes medications * Basal insulin * Lantus 10 units today at noon x1 * Lantus 5-15 units scale based on BSG QAM * Bolus insulin * NovoLog per scale ACHS or Q6hrs while NPO * Goal Range: Low 120 mg/dL - High 160 mg/dL * Correction Factor: 30 mg/dL/unit * Nutritional / Prandial insulin per carb ratio of 1 unit per 15 grams CHO consumed
--- NOTE | 2022-07-24 16:56 | Hospitalist Progress Note ---
Date of Service July 24, 2022 Assessment & Plan (1) Abdominal pain: (2) Weakness: (3) Iron deficiency anemia: (4) Paroxysmal atrial fibrillation: (5) Diabetes type 2, controlled: (6) CKD stage 3 due to type 2 diabetes mellitus: (7) H/O: lung cancer: (8) HTN (hypertension): (9) HLD (hyperlipidemia): Plan Patient is a 86 yr female who presents with weakness x 3 weeks and low Hgb; 7.0. Patient was to start Fe+ treatments today. Patient with some dizziness with ambulation. LLQ tenderness on exam; abd/pelvic CT ordered; pt will receive 1 UPRBC. Hold ASA; start Protonix. Patient with PMH that includes breast ca in 2010 s/p lumpectomy but no chemo/radiation and ovarian ca s/p complete hysterectomy 1989. Pt also DM2, CKD3, pAF. Symptomatic anemia Iron deficiency anemia in setting of CKD Suspected GI blood loss --CT ABD:No acute infectious or inflammatory findings are identified in the abdomen or pelvis. Moderate hiatal hernia. Cholelithiasis. Cardiomegaly. Sigmoid diverticulosis without CT evidence of acute diverticulitis. S/P 2 units PRBCs Also received IV Venofer -Peripheral Smear:suggestive of iron deficiency anemia. No morphologic features suggestive of hemolytic anemia or MDS/MPN Stool for Occult pending Continue PPI daily as recommended by GI Appreciate GI input Currently patient not interested in EGD/colonoscopy Monitor CBC Hb stable Suspected UTI Urine culture growing gram-negative bacilli Empirically on Rocephin DM II Continue insulin Monitor BGs H/O Lung and ovarian cancer: breast ca in 2010 s/p lumpectomy but no chemo/radiation ovarian ca s/p complete hysterectomy 1989 Moderate Aortic Stenosis HTN P.Afib Resume Aspirin as able Continue Lisinopril HLD: On Atorvastatin; continue Degenerative Disc Disease: Stable DVT Px: SCDs for now Code Status: Full code Admission and Anticipated Discharge Date Admission Date: July 22, 2022 Subjective Patient is seen and examined at bedside No new complaints Denies any chest pain, dyspnea, dizziness, nausea, abdominal pain Hb stable Review of Systems Review of Systems: All systems reviewed & are unremarkable except as noted in Subjective Physical Exam Physical Exam: Physical Exam: Vitals signs as noted above General Appearance:Obese, no apparent distress Head: normocephalic, Atraumatic Eyes: normal inspection, EOMI Neck: supple, Trachea midline Respiratory/Chest: Normal breath sounds, CTA, No accessory muscle use Cardiovascular: S1, S2, +murmur Abdomen/GI:Soft, Non tender, Bowel sounds present Extremities/Musculoskeletal:normal inspection, 1+ B/ LE edema Neurologic/Psych:AAOX3, grossly no focal neurological deficits Skin: normal color, warm Results & Data Results & Data ([facility]) Vital Signs (Past 12 Hours) Vital Signs Temp Pulse Pulse Resp BP Pulse Ox O2 Del Method 07/24/22 12:00 36.6 C 83 20 96/57 L 96 Room Air 07/24/22 10:24 72 07/24/22 07:31 36.7 C 83 20 117/60 94 Room Air Laboratory Results Short CBC 07/24/22 Range/Units 07:24 Hgb 8.8 L (12.0-16.0) g/dl Hct 28.1 L (34.1-44.9) % BMP 07/24/22 07:24 Sodium 138 Potassium 3.8 Chloride 103 Carbon Dioxide 29 BUN 17 Creatinine 0.92 Glucose 106 H Calcium 8.7
[2022-07-24] MEDS ORDERED: PROMETHAZINE HCL 12.5 MG in SODIUM CHLORIDE 0.9% 50 ML IV PRN (20:26)
[2022-07-25] MEDS: PANTOprazole 40 MG in SYRINGE 0 ML IV SCH (08:28)
[2022-07-25] MEDS: SERTRALINE HCL 50 MG TABLET PO SCH (08:29)
[2022-07-25] MEDS: TRIAMCINOLONE ACET 0.1% CR 15 GM TUBE TOP SCH (08:29)
[2022-07-25] MEDS: FERROUS SULFATE 325 MG TAB PO SCH (08:29)
[2022-07-25] MEDS: ASCORBIC ACID 500 MG TAB PO SCH (08:29)
[2022-07-25] MEDS: FUROSEMIDE 40 MG TAB PO SCH (08:30)
[2022-07-25] MEDS: ATORVASTATIN 20 MG TAB PO SCH (08:30)
[2022-07-25] MEDS: lisinopril 2.5 MG TAB PO SCH (08:30)
[2022-07-25] MEDS: INSULIN ASPART PER UNIT SC SCH ×2 (08:37→12:58)
[2022-07-25] MEDS: cefTRIAXone SODIUM 1,000 MG in DEXTROSE 5% 50 ML IV SCH (08:50)
[2022-07-25] MEDS ORDERED: LANTUS PER UNIT CHARGE SQ SCH (09:00)
[2022-07-25] MEDS: traMADol HCL 50 MG TABLET PO PRN (09:46)
[2022-07-25 09:54] LABS: Hematocrit (blood only) 31.3 % (34.1-44.9); Hemoglobin 9.8 g/dl (12.0-16.0)
--- NOTE | 2022-07-25 10:56 | Hospitalist Progress Note ---
Date of Service July 25, 2022 Assessment & Plan (1) Abdominal pain: (2) Weakness: (3) Iron deficiency anemia: (4) Paroxysmal atrial fibrillation: (5) Diabetes type 2, controlled: (6) CKD stage 3 due to type 2 diabetes mellitus: (7) H/O: lung cancer: (8) HTN (hypertension): (9) HLD (hyperlipidemia): Plan Patient is a 86 yr female who presents with weakness x 3 weeks and low Hgb; 7.0. Patient was to start Fe+ treatments today. Patient with some dizziness with ambulation. LLQ tenderness on exam; abd/pelvic CT ordered; pt will receive 1 UPRBC. Hold ASA; start Protonix. Patient with PMH that includes breast ca in 2010 s/p lumpectomy but no chemo/radiation and ovarian ca s/p complete hysterectomy 1989. Pt also DM2, CKD3, pAF. Symptomatic anemia Iron deficiency anemia in setting of CKD Suspected GI blood loss --CT ABD:No acute infectious or inflammatory findings are identified in the abdomen or pelvis. Moderate hiatal hernia. Cholelithiasis. Cardiomegaly. Sigmoid diverticulosis without CT evidence of acute diverticulitis. S/P 2 units PRBCs Also received IV Venofer -Peripheral Smear:suggestive of iron deficiency anemia. No morphologic features suggestive of hemolytic anemia or MDS/MPN No obvious bleeding source Continue PPI daily as recommended by GI Appreciate GI input Currently patient not interested in EGD/colonoscopy Monitor CBC Hb improved to 9.8 today UTI-POA Urine culture: E.Coli Rocephin Day #3 DM II Continue insulin Monitor BGs H/O Lung and ovarian cancer: breast ca in 2010 s/p lumpectomy but no chemo/radiation ovarian ca s/p complete hysterectomy 1989 Moderate Aortic Stenosis HTN P.Afib Resume Aspirin Continue Lisinopril HLD: On Atorvastatin; continue Degenerative Disc Disease: Stable DVT Px: SCDs for now Code Status: Full code Disposition Home with Home Health Admission and Anticipated Discharge Date Admission Date: July 22, 2022 Subjective Patient is seen and examined at bedside Doing well today Denies any chest pain, dyspnea, dizziness, nausea, abdominal pain Plan to discharge home today Review of Systems Review of Systems: All systems reviewed & are unremarkable except as noted in Subjective Physical Exam Physical Exam: Physical Exam: Vitals signs as noted above General Appearance:Obese, no apparent distress Head: normocephalic, Atraumatic Eyes: normal inspection, EOMI Neck: supple, Trachea midline Respiratory/Chest: Normal breath sounds, CTA, No accessory muscle use Cardiovascular: S1, S2, +murmur Abdomen/GI:Soft, Non tender, Bowel sounds present Extremities/Musculoskeletal:normal inspection, 1+ B/ LE edema Neurologic/Psych:AAOX3, grossly no focal neurological deficits Skin: normal color, warm Results & Data Results & Data ([facility]) Vital Signs (Past 12 Hours) Vital Signs Temp Pulse Pulse Resp BP Pulse Ox O2 Del Method 07/25/22 08:14 78 07/25/22 07:44 36.8 C 76 17 109/70 97 Room Air 07/25/22 00:00 76 07/25/22 03:38 36.7 C 85 16 112/68 93 Room Air 07/24/22 23:45 36.8 C 78 16 113/66 94 Room Air Laboratory Results Short CBC 07/25/22 Range/Units 08:53 Hgb 9.8 L (12.0-16.0) g/dl Hct 31.3 L (34.1-44.9) %
--- NOTE | 2022-07-25 11:14 | Discharge Summary ---
Date of Service July 25, 2022 Admission HPI Per Admitting Provider Patient stated that she was being seen by [facility] and was noted to have a low hemoglobin of 7.5. She stated that she has been feeling week over the past few weeks, and was feeling dizzy when she would walk a few steps. She currently denies BUCKNER, dizziness, CP, SOB, black and tarry stools. 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 Patient reports that she lives alone at home and her granddaughter has arranged meals on wheels. Patient was sitting upright in her hospital bed in no apparent distress. She was AAO x 3 and able to converse and hold a meaningful conversation. She had some LLQ tenderness on exam warranting an abdominal CT to be ordered. She will receive one unit of PRBC with Lasix thereafter and we will trend H/H. Patient will be admitted under Hospitalist service for further evaluation and management. Please see A/P for further details. Admission Exam Per Admitting Provider Physical Exam Physical Exam: Neuro: AAOx4, PERRLA, no aphagia, memory changes, CNII-XII grossly intact HEENT: head normocephalic, moist mucus membranes CV: S1/S2, (-) M/G/R, (+) 2 ower extremity edema, cap refill < 3 seconds Resp: Lungs CTA in all [place]. On RA GI: Abdomen S/NT/ND, Ax4 bowel sounds, (-) CVA tenderness Musculoskeletal: 5/5 B/L UE strength, 5/5 B/L LE strength. No gait disturbance Skin: (-) rashes , (-) erythema. Psych: euthymic mood Principal Diagnosis Symptomatic anemia Iron deficiency anemia Urinary Tract Infection Discharge Data Allergies Allergy/AdvReac Type Severity Reaction Status Date / Time No Known Drug Allergies Allergy Unknown Verified 07/22/22 17:05 Consultations 07/22/22 16:11 ED Decision to Admit Stat 07/22/22 16:48 Consult Gastroenterology Routine Ordered Studies 07/22/22 17:22 CT Abd and Pelvis [CT abd pelvis IV con only] Stat Laboratory Results WBC 6.26 K/ul (4.8-10.8) 07/23/22 05:43 RBC 3.57 M/uL (3.93-5.22) L 07/23/22 05:43 Hgb 9.8 g/dl (12.0-16.0) L 07/25/22 08:53 Hct 31.3 % (34.1-44.9) L 07/25/22 08:53 MCV 76.8 fL (80.0-100.0) L 07/23/22 05:43 MCH 24.4 pg (25.0-34.0) L 07/23/22 05:43 MCHC 31.8 g/dL (32.0-36.0) L 07/23/22 05:43 RDW Std Deviation 45.5 fL (36.4-46.3) 07/23/22 05:43 RDW Coeff of Ethan 16.2 % (11.5-14.5) H 07/23/22 05:43 Plt Count 298 K/uL (130-400) 07/23/22 05:43 MPV 9.3 fL (9.4-12.3) L 07/23/22 05:43 Immature Gran % (Auto) 0.4 % 07/22/22 14:38 Neut % (Auto) 71.7 % 07/22/22 14:38 Lymph % (Auto) 20.6 % 07/22/22 14:38 [place] % (Auto) 5.5 % 07/22/22 14:38 Eos % (Auto) 1.3 % 07/22/22 14:38 Baso % (Auto) 0.5 % 07/22/22 14:38 Reticulocyte % (Auto) 1.5 % (0.5-2.0) 07/22/22 14:38 Neut # (Auto) 6.08 K/uL (1.4-6.5) 07/22/22 14:38 Lymph # (Auto) 1.75 K/uL (1.2-3.4) 07/22/22 14:38 [place] # (Auto) 0.47 K/uL (0.24-0.82) 07/22/22 14:38 Eos # (Auto) 0.11 K/uL (0-0.50) 07/22/22 14:38 Baso # (Auto) 0.04 K/uL (0-0.2) 07/22/22 14:38 Reticulocyte # 0.05 10^6/uL (0.02-0.10) 07/22/22 14:38 Immature Gran # (Auto) 0.03 K/uL (0.00-0.02) H 07/22/22 14:38 Polychromasia 1+ 07/22/22 14:38 Microcytosis Present 07/22/22 14:38 Ovalocytes 1+ 07/22/22 14:38 Acanthocytes (Spur) 1+ 07/22/22 14:38 Peripher Smr Path Cons 07/23/22 05:43 Sodium 138 mmol/L (136-145) 07/24/22 07:24 Potassium 3.8 mmol/L (3.5-5.1) 07/24/22 07:24 Chloride 103 mmol/L (98-107) 07/24/22 07:24 Carbon Dioxide 29 mmol/L (21-32) 07/24/22 07:24 Anion Gap 6 (3-11) 07/24/22 07:24 BUN 17 mg/dl (6-23) 07/24/22 07:24 Creatinine 0.92 mg/dl (0.6-1.2) 07/24/22 07:24 Est Cr Clr Drug Dosing 43.1 ml/min 07/24/22 07:24 Est GFR ( Amer) 65.3 ml/min 07/24/22 07:24 Est GFR (Non-Af Amer) 56.4 ml/min 07/24/22 07:24 BUN/Creatinine Ratio 18.5 (10-20) 07/24/22 07:24 Glucose 106 mg/dl (70-99(Fasting)) H 07/24/22 07:24 POC Glucose 99 mg/dl (70-99) 07/25/22 07:53 Estimat Average Glucose 169 mg/dl 07/23/22 05:43 Hemoglobin A1c 7.5 % (4.5-5.6) H 07/23/22 05:43 Calcium 8.7 mg/dl (8.5-10.1) 07/24/22 07:24 Phosphorus 3.6 mg/dl (2.5-4.9) 07/22/22 14:38 Magnesium 2.0 mg/dl (1.7-2.4) 07/23/22 05:43 Iron 21 mcg/dl (35-150) L 07/22/22 14:38 Unsaturated IBC 242 mcg/dl (155-355) 07/23/22 05:43 Transferrin 323 mg/dl (200-360) 07/22/22 14:38 Ferritin 5.1 ng/ml (8-388) L 07/23/22 05:43 Total Bilirubin 0.3 mg/dl (0.2-1.0) 07/22/22 14:38 AST 15 U/L (13-39) 07/22/22 14:38 ALT 12 U/L (7-52) 07/22/22 14:38 Alkaline Phosphatase 50 U/L (34-104) 07/22/22 14:38 Troponin I High Sens 12.5 pg/ml (0-14) 07/22/22 14:38 Total Protein 6.3 gm/dl (6.0-8.3) 07/22/22 14:38 Albumin 3.5 gm/dl (3.4-5.0) 07/22/22 14:38 Globulin 2.8 gm/dl (2.5-4.0) 07/22/22 14:38 Albumin/Globulin Ratio 1.3 (0.9-2) 07/22/22 14:38 Triglycerides 63 mg/dl (0-150) 07/23/22 05:43 Cholesterol 117 mg/dl (0-200) 07/23/22 05:43 LDL Cholesterol, Calc 50 mg/dl 07/23/22 05:43 VLDL Cholesterol, Calc 13 mg/dl (0-30) 07/23/22 05:43 HDL Cholesterol 54 mg/dl 07/23/22 05:43 Cholesterol/HDL Ratio 2.2 (0-5) 07/23/22 05:43 TSH 2.093 uIu/ml (0.300-4.500) 07/22/22 14:38 Urine Color Yellow 07/23/22 Unknown Urine Appearance Clear (Clear) 07/23/22 Unknown Urine pH 6.5 (4.5-7.5) 07/23/22 Unknown Ur Specific [place] 1.021 (1.000-1.030) 07/23/22 Unknown Urine Protein Negative (Negative) 07/23/22 Unknown Urine Glucose (UA) Negative (Negative) 07/23/22 Unknown Urine Ketones Negative (Negative) 07/23/22 Unknown Urine Blood Negative (Negative) 07/23/22 Unknown Urine Nitrite Negative (Negative) 07/23/22 Unknown Urine Bilirubin Negative (Negative) 07/23/22 Unknown Urine Urobilinogen Negative (Negative) 07/23/22 Unknown Ur Leukocyte Esterase 1+ (Negative) H 07/23/22 Unknown Urine WBC (Auto) 5-10 /hpf (0-5) H 07/23/22 Unknown Urine RBC (Auto) 0-4 /hpf (0-4) 07/23/22 Unknown U Hyaline Cast (Auto) 0 /lpf (0-5) 07/23/22 Unknown U Epithel Cells (Auto) 5-10 /lpf (0-5) H 07/23/22 Unknown Urine Bacteria (Auto) 4+ (Negative) H 07/23/22 Unknown SARS-CoV-2, RNA, NAAT NEGATIVE (NEGATIVE) 07/22/22 15:20 Blood Type B Positive 07/22/22 15:13 Blood Type Recheck B Positive 07/22/22 16:28 Antibody Screen NEGATIVE 07/22/22 15:13 Crossmatch See Detail 07/22/22 15:13 Impressions Abdomen/Pelvis CT 07/22/22 17:22 CT SCAN OF THE ABDOMEN AND PELVIS WITH IV CONTRAST CLINICAL HISTORY: Left lower quadrant abdominal pain. COMPARISON STUDY: No priors. TECHNIQUE: Following the IV administration of 94 cc of Optiray 300, CT scan of the abdomen and pelvis is performed from the lung bases to the proximal femora. Images are reviewed in the axial, sagittal, and coronal planes. IV contrast was administered without complication. A dose lowering technique was utilized adhering to the principles of ALARA. CT DOSE: 588.54 mGy.cm FINDINGS: Lung bases: The heart is enlarged and without pericardial effusion. The coronary arteries and mitral annulus are densely calcified. There is mild elevation of the left hemidiaphragm with bibasilar scarring/atelectasis. No airspace consolidation or pleural effusion is seen. A 3 mm left lower lobe pulmonary nodule is seen on image #36. A fat-containing Bochdalek hernia is noted on the right. Liver: The contrast-enhanced liver is normal in size, contour, and attenuation. There is no intrahepatic biliary ductal dilatation. The hepatic veins and portal veins are patent. Gallbladder: There are tiny calcified gallstones without CT evidence of acute cholecystitis. Spleen: Normal in size and attenuation. Pancreas: Atrophic and grossly unremarkable. Adrenal glands: Unremarkable. Kidneys: The contrast enhanced kidneys demonstrate cortical atrophy and are without hydronephrosis. The kidneys enhance symmetrically. Tiny renal sinus cysts are seen on the left. Abdominal vasculature: The abdominal aorta is normal in course and caliber noting moderate to advanced atherosclerotic calcification. Stomach and bowel: There is a moderate hiatal hernia. Postoperative change is seen involving the stomach. There is [id number] sigmoid diverticulosis without CT evidence of acute diverticulitis. No bowel obstruction is identified. Mild fecal retention is seen throughout the colon. The appendix is normal as visualized. Peritoneum: There is no intraperitoneal free air or abdominal ascites. Lymphadenopathy: None. Pelvic viscera: The bladder is normal as visualized. The uterus is surgically absent. No adnexal lesion is seen. Skeletal structures: The skeletal structures are osteopenic. There is moderate to advanced lumbosacral spondylosis as well as mild scoliosis. No lytic or blast ic lesions are seen. There are healed left-sided rib fractures. IMPRESSION: 1. No acute infectious or inflammatory findings are identified in the abdomen or pelvis. 2. Moderate hiatal hernia. 3. Cholelithiasis. 4. Cardiomegaly. 5. Sigmoid diverticulosis without CT evidence of acute diverticulitis. 6. Additional findings as above. ACT 112: Negative or not required by law. Electronically signed by: Sae Fonseca M.D. 07/22/2022 5:43 PM Chest X-Ray 07/22/22 19:54 XR chest 1V portable HISTORY: 86 years-old Female volume overload acute shortness of breath with volume overload COMPARISON: Chest radiograph of same day TECHNIQUE: Portable AP view of the chest FINDINGS: Cardiomediastinal and hilar silhouettes are within normal limits. Mitral annular calcifications. Atherosclerosis of the aorta. No pneumothorax, pleural effusion, airspace consolidation or overt pulmonary edema. Surgical clips project over the right hilum. Small hiatal hernia. IMPRESSION: Cardiomegaly without acute process. ACT 112: Negative or not required by law. The above report was generated using voice recognition software. It may contain grammatical, syntax or spelling errors. Electronically signed by: Claude Simon M.D. 07/23/2022 10:56 AM Hospital Course (1) Abdominal pain: (2) Weakness: (3) Iron deficiency anemia: (4) Paroxysmal atrial fibrillation: (5) Diabetes type 2, controlled: (6) CKD stage 3 due to type 2 diabetes mellitus: (7) H/O: lung cancer: (8) HTN (hypertension): (9) HLD (hyperlipidemia): Plan Patient is a 86 yr female who presents with weakness x 3 weeks and low Hgb; 7.0. Patient was to start Fe+ treatments today. Patient with some dizziness with ambulation. LLQ tenderness on exam; abd/pelvic CT ordered; pt will receive 1 UPRBC. Hold ASA; start Protonix. Patient with PMH that includes breast ca in 2010 s/p lumpectomy but no chemo/radiation and ovarian ca s/p complete hysterectomy 1989. Pt also DM2, CKD3, pAF. Symptomatic anemia Iron deficiency anemia in setting of CKD Suspected GI blood loss --CT ABD:No acute infectious or inflammatory findings are identified in the abdomen or pelvis. Moderate hiatal hernia. Cholelithiasis. Cardiomegaly. Sigmoid diverticulosis without CT evidence of acute diverticulitis. S/P 2 units PRBCs Also received IV Venofer -Peripheral Smear:suggestive of iron deficiency anemia. No morphologic features suggestive of hemolytic anemia or MDS/MPN No obvious bleeding source Continue PPI daily as recommended by GI Appreciate GI input Currently patient not interested in EGD/colonoscopy Monitor CBC Hb improved to 9.8 today UTI-POA Urine culture: E.Coli Rocephin Day #3 DM II Continue insulin Monitor BGs H/O Lung and ovarian cancer: breast ca in 2010 s/p lumpectomy but no chemo/radiation ovarian ca s/p complete hysterectomy 1989 Moderate Aortic Stenosis HTN P.Afib Resume Aspirin Continue Lisinopril HLD: On Atorvastatin; continue Degenerative Disc Disease: Stable DVT Px: SCDs for now Code Status: Full code Disposition Home with Home Health Total Time Total Time Spent Total Time Spent (In Minutes): 55 minutes Discharge Plan Discharge Items Patient Disposition: Home - Home Health Services Reason For Visit: LOW HGB Discharge Diagnosis: Symptomatic anemia Iron deficiency anemia Urinary Tract Infection Activity: Per Instructions section Exercise/Sports: Gradually increase as tolerated Non-emergency contact: Primary Care Provider Call non-emergency contact if: you have any medication questions, your symptoms worsen, your pain is concerning for you and you have a fever Follow-up/Referrals: Mariluz Rajput MD [Primary Care Provider] - (Date & Time 08/01/2022 12:00 PM Provider Mariluz Rajput MD Department Family Medicine [facility] ) Diet: Carb Consistent or DM2 Diet Texture: Easy to Chew Addtl Attending Provider Instructions: Follow-up with your primary care physician on 08/01/2022 12:00 PM as scheduled --Complete the antibiotic course as prescribed. Cefdinir 300mg Twice a day start taking from 07/26/22 (Tomorrow) --Discuss with your physician regarding further need for IV Venofer as advised Seek immediate medical attention if your symptoms reoccur or worsen Please take all medications as instructed on discharge list below. Please call if you have any questions or problems. You can reach a [facility] hospitalist on duty at [facility] 24 hours a day by calling [phone] Pending Studies at Discharge: No Stand-Alone Forms: My [facility], Smoking Cessation Medications and DC Order Prescriptions: New ferrous sulfate 325 mg (65 mg iron) Tablet,Delayed Release (Dr/Ec) 325 mg PO BIDM Qty: 60 0RF cefdinir 300 mg capsule 300 mg PO BID Qty: 4 0RF Rx Instructions: Start taking from 07/26/22 Continued tramadol 50 mg tablet 50 mg PO BID PRN (Reason: Pain, Severe) triamcinolone acetonide 0.1 % cream 1 applic TOPICAL BID Rx Instructions: affected areas of venous stasis sertraline 50 mg tablet 50 mg PO QAM diclofenac sodium 1 % gel 1 ea TOPICAL QID PRN (Reason: Pain) furosemide 40 mg tablet 40 mg PO QAM atorvastatin 20 mg tablet 20 mg PO DAILY insulin glargine [Lantus U-100 Insulin] 100 unit/mL solution 30 unit SUBCUT QAM hydrochlorothiazide 25 mg tablet 12.5 mg PO DAILY Rx Instructions: 1/2 tablet dose lisinopril 2.5 mg tablet 2.5 mg PO DAILY aspirin [Aspirin Low-Strength] 81 mg Tablet,Delayed Release (Dr/Ec) 81 mg PO DAILY Discharge Orders: Discharge Order (Routine); Ordered 07/25/22 Ordered By: Yousif Schumacher/Other Patient Handouts: Managing Type 2 Diabetes Admission Data Admit Date/Time: 07/22/22 16:37 Attending Provider: Yousif Galarza Admit Provider: [facility] Primary Care Provider: Mariluz Rajput Other Providers: [facility] ; Rudy Escamilla ; [facility]
== END 2022-07-25 14:19 | disposition home health service (06) | DRG 812 ==
LOC: ED 14:24 → EDINP 16:37 → SUATTDRO 16:37 → 4W 18:30